=== PATIENT | male | born 1970 | race Caucasian/White ===

== ENCOUNTER → 2019-05-10 11:36 | Outpatient (CLI) | payer BC, OTHER, SELFPAY ==
--- NOTE | ~2019-05-10 | XR_ITS ---
XR lumbar spine min 4V DATE: 05/10/2019 11:39 INDICATION: Low back pain, right sciatica. TECHNIQUE: AP, lateral, bilateral oblique and coned lateral lumbosacral views COMPARISON: None FINDINGS: There is degenerative spurring of the lower thoracic and lumbar spine. There is moderate lo ss of height at the L5-S1 interspace but the remaining lumbar interspaces are relatively well preserv ed. No spondylolysis or spondylolisthesis. The included lower thoracic and lumbar pedicles are intact. No fracture or bone destruction or spondylolisthesis. Sacroiliac joints are unremarkable other than mild degenerative change. IMPRESSION: Degenerative changes of the lower thoracic and lumbar spine Reviewed, dictated and finalized at location B. CENTER OPERATOR
== END ==
PROVIDERS: PCP Family Medicine; Visit Provider Family Medicine
DX: G89.29 Other chronic pain (principal); M54.41 Lumbago with sciatica, right side
CPT/HCPCS: 72110

== ENCOUNTER 2020-03-29 06:54 | Outpatient (NON) | payer OTHER, SELFPAY ==
[2020-03-29 17:42] LABS: SARS-CoV-2 RNA PCR Negative
== END 2020-03-29 06:55 ==
PROVIDERS: PCP Family Medicine; Visit Provider Family Medicine
DX: J20.9 Acute bronchitis, unspecified (principal); Z20.822 Contact with and (suspected) exposure to COVID-19
CPT/HCPCS: C9803; U0003

== ENCOUNTER 2020-08-02 09:43 | Emergency (ER) | payer OTHER, SELFPAY ==
[2020-08-02] VITALS (22 sets, daily range): BP systolic 90–114; BP diastolic 67–89; PULSE 76–159; RESP 12–22; TEMP 36.7; O2SAT 94–99
--- NOTE | ~2020-08-02 | XR_ITS ---
XR chest 2V DATE: 08/02/2020 10:20 INDICATION: Tachycardia TECHNIQUE: AP and lateral views COMPARISON: 04/10/2019 PA and lateral chest FINDINGS: Normal heart size. No hilar or mediastinal enlargement. No pulmonary infiltrate or consolid ation, pleural effusion or pulmonary vascular congestion or pneumothorax is detected. Degenerative spurring of the thoracic and lumbar spine. IMPRESSION: No active cardiopulmonary disease Reviewed, dictated and finalized at location A.
--- NOTE | 2020-08-02 09:49 | ED.CHESTPAIN ---
HPI - Chest Pain General Chief Complaint: Chest Pain Stated Complaint: irregular heart beat Time Seen by Provider: 08/02/20 09:48 History of Present Illness HPI narrative: 49 yo male w/ h/o atrial fibrillation, DM presents to the ED for atrial fibrillation. He reports that he noticed racing heart rate, generalized weakness, and mild chest discomfort last night. He checked his heart monitor and he was in atrial fibrillation. He took 25 mg metoprolol. This morning he was still in atrial fibrillation. He called his extract operator and they told him to come in. He did take another 25 mg of metoprolol this morning. This is only the second time he has been in atrial fibrillation. He is on Eliquis. He sees Dr. Menezes at [facility]. Related Data Home Medications Medication Instructions Recorded Confirmed apixaban 5 mg tablet 5 mg PO BID 02/08/19 05/31/20 ascorbate calcium (vitamin C) 500 500 mg PO DAILY 02/08/19 05/31/20 mg tablet atorvastatin 40 mg tablet 40 mg PO DAILY 02/08/19 05/31/20 cetirizine 10 mg tablet 10 mg PO DAILY 02/08/19 05/31/20 cholecalciferol (vitamin D3) 25 1,000 unit PO DAILY 02/08/19 05/31/20 mcg (1,000 unit) capsule multivitamin,[id number]-[id number]-[id number] 1 tablet PO DAILY 02/08/19 05/31/20 blood sugar diagnostic #10 each 05/10/19 05/31/20 blood-glucose meter #1 each 05/10/19 05/31/20 lancets 33 gauge #100 each 05/10/19 05/31/20 metformin 1,500 mg PO QAM 08/02/20 Allergies Allergy/AdvReac Type Severity Reaction Status Date / Time No Known Allergies Allergy Verified 08/02/20 09:54 Review of Systems Review of Systems: All systems reviewed & are unremarkable except as noted in HPI and below Constitutional: Constitutional: Denies chills and Denies fever(s) ENT: Reports system reviewed and no additional complaints, except as documented Cardiovascular: Cardiovascular: Reports chest pain, Reports rapid heart rate and Denies radiating jaw, neck or arm pain Respiratory: Respiratory: Denies dyspnea Gastrointestinal: Gastrointestinal: Denies abdominal pain and Denies nausea Genitourinary: Genitourinary: Reports no additional male genitourinary complaints Musculoskeletal: Musculoskeletal: Denies back pain Neurologic: Denies syncope PMFSH Past Medical History Medical History Acute bronchitis Afib Anemia Carpal tunnel syndrome Chronic low back pain with right-sided sciatica Diabetes Encounter for prostate cancer screening Exposure to COVID-19 virus Fatigue GERD (gastroesophageal reflux disease) Hyperlipidemia Insomnia Kidney stones Seasonal allergies Sleep apnea Surgical History Surgical History H/O skin graft History of carpal tunnel release Family History Family History Father Cerebrovascular accident Family history of chronic obstructive pulmonary disease Family history of congestive heart failure Mother Family history of lung cancer, Onset Age: 64 Social History Social History Smoking status: Never smoker Alcohol intake: never Gender identity (if verbalized by the patient): Male Exam Const: General: healthy appearing, no acute distress and alert Nutritional Appearance: well nourished Orientation/consciousness: patient oriented x3 HENMT: Head: normal to inspection Neck: Neck: normal visual inspection Chest: Chest palpation & inspection: no tenderness Resp: Effort & Inspection: normal respiratory effort Auscultation: clear to auscultation bilaterally, no rales, no rhonchi and no wheezes Cardio: Jugular venous distension: no JVD Rate: tachycardic Rhythm: abnormal rhythm irregularly irregular Heart sounds: no murmurs GI: Inspection: non-distended GI Palp: Yes Soft to palpation and No Tenderness to palpation present (GI) Skin: General
--- NOTE | 2020-08-02 09:51 | ECG_ITS ---
Measurements Intervals [place] Rate: 161 P: OR: 0 QRS: -15 QRSD: 85 T: 50 QT: 263 QTc: 431 Interpretive Statements ATRIAL FIBRILLATION WITH RAPID VENTRICULAR RESPONSE INCOMPLETE RIGHT BUNDLE BRANCH BLOCK ABNORMAL ECG Electronically Signed On 08-02-2020 10:03:55 CDT by Kolton Nguyen D.O.
[2020-08-02] MEDS: SODIUM CHLORIDE 0.9% IV 1,000 ML 999 ML IV CONT (10:06)
[2020-08-02] MEDS: ASPIRIN 81 MG CHEWABLE TABLET 324 MG PO (10:06)
[2020-08-02 10:07] LABS: Basophils Percent Auto 0.5 % (0.2-1.2); Eosinophils Absolute Auto 0.2 K/mm3 (0-0.3); Hematocrit 51.3 % (42.0-52.0); Immature Granulocyte Absolute 0.02 K/mm3 (0.00-0.031); Immature Granulocyte Percent A 0.3 % (0-0.5); Lymphocytes Absolute Auto 1.48 K/mm3 (0.9-3.2); Lymphocytes Percent Auto 20.1 % (18.3-44.2); Mean Corpuscular HGB Conc 33.1 g/dl (32-36); Mean Corpuscular Hemoglobin 29.8 pg (26-34); Mean Platelet Volume 9.3 fl (7.4-10.4); Monocytes Absolute Auto 0.6 K/mm3 (0.1-0.6); Monocytes Percent Auto 7.9 % (2.6-8.5); Neutrophils Percent Auto 68.2 % (45.5-73.1); Platelet Count Result 291 k/mm3 (150-375); Red Cell Distribution Width 12.7 % (11.5-14.5); White Blood Count 7.4 K/mm3 (4.5-10.0)
[2020-08-02] MEDS: METOPROLOL TARTRATE INJ 5 MG/5 ML VIAL IV PUSH (10:07)
[2020-08-02 10:18] LABS: Anion Gap 5 mmol/L (8-16); Blood Urea Nitrogen 11 mg/dL (9-20); Calcium 9.6 mg/dL (8.4-10.2); Carbon Dioxide 31 mmol/L (22-30); Chloride 104 mmol/L (98-107); Estimated CRCL calculation 88 ml/min; Estimated Glomerular Filt Rate > 60; Glucose 116 mg/dL (75-110); Potassium 4.2 mmol/L (3.4-5.0); Sodium 140 mmol/L (137-145)
[2020-08-02 10:20] LABS: Prothrombin Time 13.6 Seconds (11.1-14.7)
[2020-08-02 10:21] LABS: Partial Thromboplastin Time 37.4 SECONDS (22.3-36.8)
[2020-08-02 10:29] LABS: Troponin I < 0.012 ng/mL (0.000-0.034)
--- NOTE | 2020-08-02 10:36 | PC.NURSE ---
Pt moved to Rm 3 in case of need to cardiovert under moderate sedation.
--- NOTE | 2020-08-02 10:55 | PC.NURSE ---
Consent for moderate sedation for cardioversion signed per pt.
[2020-08-02] MEDS: PROPOFOL IV EMULSION 200 MG/20 ML VIAL 50 MG IV PUSH (11:07)
[2020-08-02] MEDS: PROPOFOL IV EMULSION 200 MG/20 ML VIAL 20 MG IV PUSH ×3 (11:08→11:12)
--- NOTE | 2020-08-02 11:09 | PC.NURSE ---
Pt given propofol x3 doses, attempt cardioversion with 100j. Pt returns to a-fib with RVR rate 150's.
--- NOTE | 2020-08-02 11:12 | PC.NURSE ---
Pt given additional propofol. Cardioverted with 200j. Note conversion to SR rate 80's. Preparing to obtain EKG
--- NOTE | 2020-08-02 11:14 | ECG_ITS ---
Measurements Intervals [place] Rate: 81 P: 42 IN: 165 QRS: -18 QRSD: 88 T: 43 QT: 355 QTc: 413 Interpretive Statements SINUS RHYTHM INCOMPLETE RIGHT BUNDLE BRANCH BLOCK BORDERLINE ECG Electronically Signed On 08-02-2020 12:04:14 CDT by Kolton Nguyen D.O.
[2020-08-02] MEDS: SODIUM CHLORIDE 0.9% IV 1,000 ML 999 ML (11:39)
== END 2020-08-02 12:30 | disposition home or self-care (01) ==
PROVIDERS: Emergency Provider Emergency Medicine; PCP Family Medicine
DX: I48.91 Unspecified atrial fibrillation (principal); D64.9 Anemia, unspecified; E11.9 Type 2 diabetes mellitus without complications; K21.9 Gastro-esophageal reflux disease without esophagitis; E78.5 Hyperlipidemia, unspecified; G47.30 Sleep apnea, unspecified; Z79.84 Long term (current) use of oral hypoglycemic drugs
CPT/HCPCS: 36415; 71046; 80048; 84443; 84484; 85025; 85610; 85730; 92960; 93005; 96374; 99285; A9270; J2704; J7030

== ENCOUNTER 2020-10-23 08:41 | Outpatient (CLI) | payer OTHER, SELFPAY ==
--- NOTE | 2020-11-20 11:03 | WPDHOMESLEEP ---
Sleep Study - Home Unattended Date of Study: 10/23/20 Ordering Provider: Vince Jansen MD Interpreting Provider: Randi Carroll MD Home Sleep Study Type: Apnea Link Air Height: 1.78 m Weight: 90.718 kg Body Mass Index: 28.7 Neck Circumference (inches): 18 [place]: 6 Reason for Sleep Study Hypersomnia *Prior basic sleep study 06/22/2009 with AHI 5, excessive daytime sleepiness, Short sleep latency heavy snoring short REM latency, cannot rule out narcolepsy Sleep History Bonifacio Morrow is 50 years old, has paroxysmal atrial fibrillation, seasonal allergic rhinitis, and frequent fatigue. he had a basic sleep study June 22, 2009 with an AHI of 5 and a short sleep latency consistent with hypersomnolence.He he occasionally awakens at night with heartburn, belching or coughing, he occasionally snores loudly, occasionally has trouble sleeping with a cold. He does not gasp for breath at night or notice his heart pounding irregularly night. He occasionally sweats excessively at night. He rarely falls asleep during the day, never falls asleep involuntarily or while driving. No loss of muscle tone with strong emotion. No daytime difficulties at work due to excessive sleepiness. He does not feel paralyzed on waking or falling asleep. He does not have vivid dreamlike scenes upon awakening or falling asleep. He does not have nightmares. He rarely remembers his dreams. He occasionally has racing thoughts. He does not feel sad or depressed. He rarely has anxiety or notice parts of his body jerking. He does not kick at night. He rarely has crawling and aching feelings in his legs. He occasionally is bothered by pain during the day. He never grind his teeth at night. He has sexual problems. Normal bedtime between 11 and 11:30 p.m. falling asleep within 15-30 minutes waking 2-3 times at night staying awake for 5 minutes before being able to go back to sleep. He wakes the morning at 6:00 a.m.. Weekend schedule is similar going to bed as late as midnight and waking at 7:00 a.m.. He does not take naps. Short naps are not refreshing. He is drowsy in the morning for an hour or longer. Habits: Never smoked tobacco. Caffeine 2-4 cups a day. No alcohol or recreational drugs. [facility] Past Medical History Medical History Acute bronchitis Afib Anemia BMI 28.0-28.9,adult Carpal tunnel syndrome Chronic low back pain with right-sided sciatica Chronic neck pain with history of cervical spinal surgery Chronic pain in right shoulder Diabetes Encounter for prostate cancer screening Exposure to COVID-19 virus Fatigue GERD (gastroesophageal reflux disease) Hyperlipidemia Hypersomnia Insomnia Kidney stones Obstructive sleep apnea Seasonal allergies Surgical History Surgical History H/O skin graft History of carpal tunnel release Family History Family History Father Cerebrovascular accident Family history of chronic obstructive pulmonary disease Family history of congestive heart failure Mother Family history of lung cancer, Onset Age: 64 Social History Social History Smoking status: Never smoker Alcohol intake: never Gender identity (if verbalized by the patient): Male Medications Home Medications Medication Instructions Recorded Confirmed Type apixaban 5 mg tablet 5 mg PO BID 02/08/19 11/07/20 History ascorbate calcium (vitamin C) 500 500 mg PO DAILY 02/08/19 11/07/20 History mg tablet atorvastatin 40 mg tablet 40 mg PO DAILY 02/08/19 11/07/20 History cetirizine 10 mg tablet 10 mg PO DAILY 02/08/19 11/07/20 History cholecalciferol (vitamin D3) 25 1,000 unit PO DAILY 02/08/19 11/07/20 History mcg (1,000 unit) capsule multivitamin,[id number]-[id number] 1 tablet PO DAILY 02/08/19
[2020-11-20 11:23] VITALS: BMI 28.7
== END 2020-10-24 08:13 | disposition home or self-care (01) ==
LOC: ANHCSM 08:42
PROVIDERS: PCP Family Medicine; Visit Provider Family Medicine
DX: G47.10 Hypersomnia, unspecified (principal); G47.33 Obstructive sleep apnea (adult) (pediatric)
CPT/HCPCS: 95806

== ENCOUNTER → 2020-12-19 05:17 | Outpatient (CLI) | payer OTHER, SELFPAY ==
[2020-12-20 01:26] LABS: SARS-CoV-2 RNA PCR Negative
== END ==
PROVIDERS: PCP Family Medicine; Visit Provider Family Medicine
DX: Z20.822 Contact with and (suspected) exposure to COVID-19 (principal); J20.9 Acute bronchitis, unspecified
CPT/HCPCS: C9803; U0003; U0005

== ENCOUNTER 2021-03-28 07:19 | Outpatient (RCR) | payer OTHER, SELFPAY ==
[2021-03-28] MEDS: ACETAMINOPHEN 325 MG TABLET 650 MG PO (07:30)
[2021-03-28] MEDS: diphenhydrAMINE HCl CAP 25 MG CAPSULE PO (07:31)
[2021-03-28] MEDS: FAMOTIDINE 20 MG TABLET PO (07:31)
[2021-03-28 07:36] VITALS: BP 115/78; PULSE 84; RESP 18; TEMP 36.2; O2SAT 98
[2021-03-28 09:12] VITALS: BP 108/76; PULSE 76; O2SAT 100
== END 2021-03-28 17:00 ==
LOC: AMCINF 07:19
PROVIDERS: PCP Family Medicine; Referring Provider Family Medicine; Visit Provider Internal Medicine Hematology & Oncology
DX: U07.1 COVID-19 (principal); E11.9 Type 2 diabetes mellitus without complications
CPT/HCPCS: A9270; M0247

== ENCOUNTER 2021-08-06 16:56 | Outpatient (CLI) | payer OTHER, SELFPAY ==
--- NOTE | ~2021-08-06 | CT_ITS ---
EXAMINATION: CT abdomen pelvis wo con DATE: 08/06/2021 17:19 INDICATION: History of ureteral stone, low back pain, TECHNIQUE: Computed tomography (CT) of the abdomen and pelvis was performed without intravenous contr ast. Automated exposure control and iterative reconstruction technique were employed. The dose-length product was 245.51 mGy-cm. COMPARISON: 03/18/2015. FINDINGS: Lower thorax: Unremarkable Liver: Normal. Biliary/Gallbladder: Gallbladder is normal. No bile duct dilation. Pancreas: No mass or duct dilation. Spleen: Normal. Adrenals:No mass. Kidneys: Nonobstructing 2 x 4 mm stone in the proximal left renal pelvis. Punctate left upper pole ca lcification. No other renal calcifications. No mass or hydronephrosis. GI tract: No small or large bowel dilation. Normal appendix. Mesentery/Peritoneum: No ascites, mass, or free air. Retroperitoneum: No mass. Pelvis: Pelvic organs are within normal limits. Soft Tissues: Soft tissues and body wall unremarkable. Bones: No acute osseous finding. IMPRESSION: Nonobstructive 2 x 4 mm proximal left renal pelvis stone. No other acute abdominal pelvic process det ected. Reviewed, dictated and finalized at location K. IMPRESSION: Nonobstructive 2 x 4 mm proximal left renal pelvis stone. No other acute abdomi nal pelvic process detected.
== END 2021-08-06 16:57 | disposition home or self-care (01) ==
PROVIDERS: PCP Family Medicine; Visit Provider Family Medicine
DX: N20.0 Calculus of kidney (principal)
CPT/HCPCS: 74176

== ENCOUNTER 2021-08-14 16:19 | Outpatient (CLI) | payer OTHER, SELFPAY ==
--- NOTE | ~2021-08-14 | CT_ITS ---
EXAMINATION: CT abdomen pelvis wo con DATE: 08/14/2021 16:39 INDICATION: N20.0 - Calculus of kidney TECHNIQUE: Computed tomography (CT) of the abdomen and pelvis was performed without intravenous contr ast. Automated exposure control and iterative reconstruction technique were employed. The dose-length product was 581.01 mGy-cm. COMPARISON: None FINDINGS: Lower thorax: Unremarkable Liver: Normal. Biliary/Gallbladder: Gallbladder is normal. No bile duct dilation. Pancreas: No mass or duct dilation. Spleen: Normal. Adrenals:No mass. Kidneys: No mass or hydronephrosis. Slight downstream movement of the 2 x 4 mm calcification describe d in the prior study, now located in the left UPJ, with minimal surrounding inflammatory change. [place] nonobstructive left upper pole calcification. GI tract: No small or large bowel dilation. Normal appendix. Mesentery/Peritoneum: No ascites, mass, or free air. Retroperitoneum: No mass. Pelvis: Prostatomegaly, otherwise the pelvic organs are within normal limits. Soft Tissues: Soft tissues and body wall unremarkable. Bones: No acute osseous finding. IMPRESSION: 2 x 4 mm left UPJ stone with mild adjacent inflammation, but no hydronephrosis. Otherwise no acute ab dominopelvic process. Reviewed, dictated and finalized at location K. IMPRESSION: 2 x 4 mm left UPJ stone with mild adjacent inflammation, but no hydronephrosis. Otherwise no acute abdominopelvic process.
== END 2021-08-14 16:20 | disposition home or self-care (01) ==
PROVIDERS: PCP Family Medicine; Visit Provider Family Medicine
DX: N20.1 Calculus of ureter (principal)
CPT/HCPCS: 74176

== ENCOUNTER 2021-09-26 10:59 | Emergency (ER) | payer OTHER, SELFPAY ==
--- NOTE | ~2021-09-26 | CT_ITS ---
EXAMINATION: CT abdomen pelvis w con DATE: 09/26/2021 12:14 INDICATION: Left flank pain after lithotripsy. Hematuria. TECHNIQUE: Computed tomography (CT) of the abdomen and pelvis was performed with 100 CC Omnipaque 300 intravenous contrast. Automated exposure control and iterative reconstruction technique were employe d. Exam dose: 557.89 mGy-cm total exam DLP. COMPARISON: 07/2021 CT abdomen pelvis FINDINGS: The lung bases are clear of infiltrate or consolidation. Normal heart size. No pericardial or pleural effusion. The liver, gallbladder, bile ducts, spleen, pancreas, pancreatic duct, and adrenal glands are unremar kable. Normal right kidney. No right urinary tract calculus or hydroureteronephrosis. Left internal urinary stent is present in expected position, proximal pigtail in the renal pelvis, di stal pigtail in the left lateral aspect of the urinary bladder. There is a pinpoint calculus in the lower pole collecting system of the left kidney prior left renal pelvic calculus of 08/10/2021 CT examination is not detected. No other urinary tract calculus is noted . There is diffuse periureteral stranding which may be secondary to instrumentation or infection. There is a small amount of air in the nondependent aspect of the urinary bladder. No unusual bladder wall thickening or pericystic fat stranding. Prostate enlargement and calcification. Normal caliber of the abdominal aorta. No intraperitoneal or retroperitoneal or pelvic mass lesion or adenopathy or ascites. Small fat-containing left inguinal hernia. Small fat-containing umbilical hernia. Which might which m ight be secondary to infection. Degenerative changes of the thoracic and lumbar spine; no suspicious osteolytic or osteoblastic lesio ns. IMPRESSION: Left internal urinary stent in expected position Pinpoint nonobstructing lower pole left renal calculus; no other apparent urinary tract calculus There is diffuse left periureteral stranding which may be due to instrumentation or infection Prostate enlargement and calcification Reviewed, dictated and finalized at Location A. Reviewed, dictated and finalized at location A. IMPRESSION: Left internal urinary stent in expected position Pinpoint nonobstructing lower pole left renal calculus; no other apparent urina ry tract calculus There is diffuse left periureteral stranding which may be due to instrumentatio n or infection Prostate enlargement and calcification
[2021-09-26 11:01] VITALS: BP 131/77; PULSE 100; RESP 18; TEMP 36.6; O2SAT 99
[2021-09-26 11:26] LABS: Add Urine Microscopic? YES; Appearance Urine Turbid (Clear); Bilirubin Urine 3+ (Negative); Blood Urine 3+ (Negative); Color Urine Red (Yellow); Glucose Urine UA Negative (Negative); Ketones Urine 1+ mg/dL (Negative); Leukocyte Esterase Ur 3+ LEU/UL (Negative); Nitrate Urine Negative (Negative); Protein Urine 3+ mg/dL (Negative)
--- NOTE | 2021-09-26 11:33 | ED.MALEGU ---
HPI - Male Genitourinary General Chief complaint: Urogenital-Male Stated complaint: post op pain, hematuria Time Seen by Provider: 09/26/21 11:20 Source: patient History of Present Illness HPI Narrative: Patient presents with left-sided abdominal pain and back pain. Patient reports he had lithotripsy on the first month with stent placement positioning fairly well his volume blood in his urine is waxing waning reports intermittent clots. Recently however his pain has been increasing and in the suprapubic area and on the left flank. He feels like he has been having increased blood in his urine as well as some subjective fevers at home so he came to the ER for further evaluation. Denies any nausea or vomiting denies any chest pain or shortness of breath. His pain is abdomen is mainly in the suprapubic area and achy constant and radiates up into his left flank. He also reports pain with urination Related Data Home Medications Medication Instructions Recorded Confirmed apixaban 5 mg tablet (Eliquis) 5 mg PO BID 02/08/19 09/10/21 ascorbate calcium (vitamin C) 500 500 mg PO DAILY 02/08/19 09/10/21 mg tablet cetirizine 10 mg tablet (All Day 10 mg PO DAILY 02/08/19 09/10/21 Allergy (cetirizine)) multivitamin,[id number]-clmk-[id number] 1 tablet PO DAILY 02/08/19 09/10/21 (Complete Multivitamin tablet) blood sugar diagnostic (Parcus Medicaluch #10 ea 05/10/19 09/10/21 Ultra Blue Test Strip) blood-glucose meter (P[employer] MedicalTouch #1 ea 05/10/19 09/10/21 Ultra2 Meter kit) lancets 33 gauge (OneTouch Delica #100 ea 05/10/19 09/10/21 Lancets) atorvastatin 80 mg tablet 80 mg PO DAILY 04/10/21 09/10/21 cholecalciferol (vitamin D3) 25 2,000 unit PO DAILY 04/10/21 09/10/21 mcg (1,000 unit) capsule ezetimibe 10 mg tablet (Zetia) 10 mg PO DAILY 04/10/21 09/10/21 metoprolol succinate 25 mg 25 mg PO DAILY 04/27/21 09/10/21 tablet,extended release 24 hr Allergies Allergy/AdvReac Type Severity Reaction Status Date / Time No Known Allergies Allergy Verified 09/26/21 11:03 Review of Systems Review of Systems: CONSTITUTIONAL: Denies fever, chills, or sweats. EYES: Denies visual changes, redness, or discharge. ENT: Denies rhinorrhea, congestion, sore throat, or otalgia. CARDIOVASCULAR: Denies chest pain, palpitations, or edema. RESPIRATORY: Denies cough or dyspnea. GASTROINTESTINAL: Denies nausea, vomiting, or diarrhea. GENITOURINARY: Reports dysuria and hematuria SKIN: Denies rash or itching. MUSCULOSKELETAL: Denies back pain, joint pain, or myalgia. NEUROLOGIC: Denies headache, numbness, dizziness, or weakness. PSYCHIATRIC: Denies anxiety or depression. All systems reviewed & are unremarkable except as noted in HPI and below PMFSH Past Medical History Medical History Acute bronchitis Afib Anemia BMI 28.0-28.9,adult BMI 29.0-29.9,adult Carpal tunnel syndrome Chronic low back pain with left-sided sciatica Chronic low back pain with right-sided sciatica Chronic neck pain with history of cervical spinal surgery Chronic pain in right shoulder COVID-19 (03/23/21) tested positive 03/24/2021 Diabetes Encounter for prostate cancer screening Exposure to COVID-19 virus Fatigue GERD (gastroesophageal reflux disease) Hyperlipidemia Hypersomnia Insomnia Kidney stones CT 08/06/2021 with a 2 x 4 mm nonobstructive stone in the left renal pelvis. 4 mm stone in the left UPJ on CT 08/14/2021. Obstructive sleep apnea Home sleep study with [facility] with AHI 6.5 with 12% obstructive sleep apnea episodes and 88% central apnea episodes with need for CPAP titration 11/20/2020 Overweight (BMI 25.0-29.9) Seasonal allergies UTI (urinary tract infection) Surgical History Surgical History H/O skin graft History of carpal tunnel release Family History Family History Father Cerebrovascular accident
[2021-09-26 11:36] LABS: Mucus Urine Rare /lpf; RBC Urine >75 /hpf (0-2); WBC Urine 31-50 /hpf
[2021-09-26] MEDS: SODIUM CHLORIDE 0.9% IV 1,000 ML 999 ML IV CONT (11:43)
--- NOTE | 2021-09-26 11:44 | PC.NURSE ---
barcode would not scan on acetaminophen bag
[2021-09-26 11:46] LABS: Basophils Percent Auto 0.4 % (0.2-1.2); Eosinophils Absolute Auto 0.2 K/mm3 (0-0.3); Eosinophils Percent Auto 2.8 % (0-4.4); Hematocrit 43.8 % (42.0-52.0); Hemoglobin 14.7 g/dL (14.0-18.0); Immature Granulocyte Absolute 0.02 K/mm3 (0.00-0.031); Immature Granulocyte Percent A 0.3 % (0-0.5); Lymphocytes Absolute Auto 1.22 K/mm3 (0.9-3.2); Lymphocytes Percent Auto 16.2 % (18.3-44.2); Mean Corpuscular HGB Conc 33.6 g/dl (32-36); Mean Corpuscular Hemoglobin 30.3 pg (26-34); Mean Corpuscular Volume 90.3 fl (80-100); Mean Platelet Volume 8.9 fl (7.4-10.4); Monocytes Absolute Auto 0.6 K/mm3 (0.1-0.6); Monocytes Percent Auto 7.4 % (2.6-8.5); Neutrophils Absolute Auto 5.5 K/mm3 (1.3-6.7); Neutrophils Percent Auto 72.9 % (45.5-73.1); Platelet Count Result 240 k/mm3 (150-375); Red Blood Count 4.85 M/mm3 (4.6-6.20); Red Cell Distribution Width 12.4 % (11.5-14.5); White Blood Count 7.6 K/mm3 (4.5-10.0)
[2021-09-26 11:59] LABS: Alanine Aminotransferase 41 U/L (6-50); Albumin Level 4.1 g/dL (3.5-5.1); Alkaline Phosphatase 86 U/L (38-126); Anion Gap 6 mmol/L (8-16); Aspartate Amino Transferase 29 U/L (17-59); Blood Urea Nitrogen 12 mg/dL (9-20); Carbon Dioxide 28 mmol/L (22-30); Chloride 102 mmol/L (98-107); Estimated CRCL calculation 102 ml/min; Estimated Glomerular Filt Rate > 60; Glucose 142 mg/dL (65-110); Potassium 4.1 mmol/L (3.4-5.0); Sodium 136 mmol/L (137-145)
[2021-09-26 12:18] VITALS: BP 128/76; PULSE 74; RESP 16; TEMP 36.4; O2SAT 100
[2021-09-26 14:07] VITALS: BP 132/76; PULSE 70; RESP 16; TEMP 36.4; O2SAT 98
[2021-09-26 14:51] VITALS: BP 128/70; PULSE 72; RESP 16; TEMP 36.6; O2SAT 100
== END 2021-09-26 14:52 | disposition home or self-care (01) ==
PROVIDERS: Emergency Provider Emergency Medicine; PCP Family Medicine
DX: R31.9 Hematuria, unspecified (principal); R10.9 Unspecified abdominal pain; I48.91 Unspecified atrial fibrillation; E11.9 Type 2 diabetes mellitus without complications; E78.5 Hyperlipidemia, unspecified; Z79.01 Long term (current) use of anticoagulants
CPT/HCPCS: 36415; 74177; 80053; 81001; 85025; 87086; 96365; 99284; J0131; J7030; Q9967

== ENCOUNTER 2021-10-02 22:15 | Emergency (ER) | payer OTHER, SELFPAY ==
[2021-10-02 22:21] VITALS: BP 116/75; PULSE 114; RESP 20; TEMP 36.3; O2SAT 100
--- NOTE | 2021-10-02 23:03 | ED.MALEGU ---
HPI - Male Genitourinary General Chief complaint: Urogenital-Male Stated complaint: unable to urinate for 5 hrs Time Seen by Provider: 10/02/21 22:32 Source: patient Mode of arrival: ambulatory Limitations: no limitations History of Present Illness HPI Narrative: This is a 51-year-old male that presents to the emergency department for urinary retention. Reports he had a ureteral stent placed at the beginning of this month. It was pulled out today in clinic by his urologist. Initially he was able to urinate. He has not been able to since about 5 PM though. He did report passing a blood clot tonight. He is on Eliquis currently for history of atrial fibrillation. Denies fever. Related Data Home Medications Medication Instructions Recorded Confirmed apixaban 5 mg tablet (Eliquis) 5 mg PO BID 02/08/19 09/10/21 ascorbate calcium (vitamin C) 500 500 mg PO DAILY 02/08/19 09/10/21 mg tablet cetirizine 10 mg tablet (All Day 10 mg PO DAILY 02/08/19 09/10/21 Allergy (cetirizine)) multivitamin,[id number]-[id number] 1 tablet PO DAILY 02/08/19 09/10/21 (Complete Multivitamin tablet) blood sugar diagnostic (OneTouch #10 ea 05/10/19 09/10/21 Ultra Blue Test Strip) blood-glucose meter (OneTouch #1 ea 05/10/19 09/10/21 Ultra2 Meter kit) lancets 33 gauge (OneTouch Delica #100 ea 05/10/19 09/10/21 Lancets) atorvastatin 80 mg tablet 80 mg PO DAILY 04/10/21 09/10/21 cholecalciferol (vitamin D3) 25 2,000 unit PO DAILY 04/10/21 09/10/21 mcg (1,000 unit) capsule ezetimibe 10 mg tablet (Zetia) 10 mg PO DAILY 04/10/21 09/10/21 metoprolol succinate 25 mg 25 mg PO DAILY 04/27/21 09/10/21 tablet,extended release 24 hr Allergies Allergy/AdvReac Type Severity Reaction Status Date / Time No Known Allergies Allergy Verified 10/02/21 22:25 Review of Systems Review of Systems: CONSTITUTIONAL: Denies fever GENITOURINARY: Reports hematuria. All systems reviewed & are unremarkable except as noted in HPI and below PMFSH Past Medical History Medical History Acute bronchitis Afib Anemia BMI 28.0-28.9,adult BMI 29.0-29.9,adult Carpal tunnel syndrome Chronic low back pain with left-sided sciatica Chronic low back pain with right-sided sciatica Chronic neck pain with history of cervical spinal surgery Chronic pain in right shoulder COVID-19 (03/23/21) tested positive 03/24/2021 Diabetes Encounter for prostate cancer screening Exposure to COVID-19 virus Fatigue GERD (gastroesophageal reflux disease) Hyperlipidemia Hypersomnia Insomnia Kidney stones CT 08/06/2021 with a 2 x 4 mm nonobstructive stone in the left renal pelvis. 4 mm stone in the left UPJ on CT 08/14/2021. Obstructive sleep apnea Home sleep study with [facility] with AHI 6.5 with 12% obstructive sleep apnea episodes and 88% central apnea episodes with need for CPAP titration 11/20/2020 Overweight (BMI 25.0-29.9) Seasonal allergies UTI (urinary tract infection) Surgical History Surgical History H/O skin graft History of carpal tunnel release Family History Family History Father Cerebrovascular accident Family history of chronic obstructive pulmonary disease Family history of congestive heart failure Mother Family history of lung cancer, Onset Age: 64 Social History Social History Smoking status: Never smoker Alcohol intake: never Gender identity (if verbalized by the patient): Male Exam Narrative: GENERAL: Well-appearing, well-nourished, and in no acute distress. HEAD: Normocephalic, atraumatic. EYES: EOMI. CHEST: Clear to auscultation. No respiratory distress. No wheezes rales or rhonchi HEART: Regular rate and rhythm. No murmur heard. Normal peripheral pulses. ABDOMEN: Soft, nontender, nondistended, normal act
[2021-10-02 23:23] LABS: Add Urine Microscopic? YES; Appearance Urine Cloudy (Clear); Bilirubin Urine 3+ (Negative); Blood Urine 3+ (Negative); Color Urine Red (Yellow); Glucose Urine UA Trace mg/dL (Negative); Ketones Urine 2+ mg/dL (Negative); Leukocyte Esterase Ur 3+ LEU/UL (Negative); Nitrate Urine Negative (Negative); Protein Urine 3+ mg/dL (Negative); Specific Grav Ur <= 1.005 (1.001-1.035); pH Urine 8.5 (5.0-9.0)
[2021-10-02 23:30] LABS: Bacteria Urine 2+ /hpf; Mucus Urine Rare /lpf; RBC Urine >75 /hpf (0-2); WBC Urine 31-50 /hpf
[2021-10-03] MEDS: HYDROcodone/acetaminophen (*CRX) 5-325 MG TABLET 1 TAB PO (00:25)
--- NOTE | 2021-10-03 00:57 | ECG_ITS ---
Measurements Intervals [place] Rate: 84 P: 21 DE: 141 QRS: -25 QRSD: 92 T: 31 QT: 370 QTc: 439 Interpretive Statements SINUS RHYTHM INCOMPLETE RIGHT BUNDLE BRANCH BLOCK BORDERLINE ECG Electronically Signed On 10-03-2021 6:31:33 CDT by Kolton Nguyen D.O.
[2021-10-03] MEDS: ONDANSETRON INJ 4 MG/2 ML VIAL IV PUSH (01:16)
[2021-10-03] MEDS: SODIUM CHLORIDE 0.9% IV 500 ML 999 ML IV CONT (01:16)
[2021-10-03] MEDS: MECLIZINE HCL 25 MG TABLET PO (01:18)
[2021-10-03] MEDS: MORPHINE SULFATE (*CRX) 4 MG/ML INJ IV PUSH (01:18)
[2021-10-03 01:29] LABS: Basophils Percent Auto 0.5 % (0.2-1.2); Eosinophils Absolute Auto 0.3 K/mm3 (0-0.3); Eosinophils Percent Auto 3.3 % (0-4.4); Hematocrit 37.8 % (42.0-52.0); Hemoglobin 12.8 g/dL (14.0-18.0); Immature Granulocyte Absolute 0.02 K/mm3 (0.00-0.031); Immature Granulocyte Percent A 0.3 % (0-0.5); Lymphocytes Absolute Auto 1.41 K/mm3 (0.9-3.2); Lymphocytes Percent Auto 17.9 % (18.3-44.2); Mean Corpuscular HGB Conc 33.9 g/dl (32-36); Mean Corpuscular Volume 88.7 fl (80-100); Mean Platelet Volume 8.9 fl (7.4-10.4); Monocytes Absolute Auto 0.7 K/mm3 (0.1-0.6); Monocytes Percent Auto 8.8 % (2.6-8.5); Neutrophils Absolute Auto 5.4 K/mm3 (1.3-6.7); Neutrophils Percent Auto 69.2 % (45.5-73.1); Platelet Count Result 260 k/mm3 (150-375); Red Blood Count 4.26 M/mm3 (4.6-6.20); Red Cell Distribution Width 12.5 % (11.5-14.5); White Blood Count 7.9 K/mm3 (4.5-10.0)
[2021-10-03 01:39] LABS: Anion Gap 7 mmol/L (8-16); Blood Urea Nitrogen 14 mg/dL (9-20); Calcium 8.5 mg/dL (8.4-10.2); Carbon Dioxide 23 mmol/L (22-30); Chloride 103 mmol/L (98-107); Estimated CRCL calculation 86 ml/min; Estimated Glomerular Filt Rate > 60; Glucose 107 mg/dL (65-110); Potassium 3.5 mmol/L (3.4-5.0); Sodium 133 mmol/L (137-145)
[2021-10-03 01:42] VITALS: BP 125/75; PULSE 82; RESP 18; O2SAT 98
--- NOTE | 2021-10-03 01:46 | PC.NURSE ---
urojet administered prior to [address] way wayne insertion
[2021-10-03] MEDS: PHENAZOPYRIDINE HCL 100 MG TABLET 200 MG PO (03:41)
[2021-10-03 04:07] VITALS: BP 127/79; PULSE 80; RESP 18; O2SAT 99
== END 2021-10-03 04:00 | disposition home or self-care (01) ==
PROVIDERS: Physician Assistant; Emergency Provider Emergency Medicine
DX: R33.9 Retention of urine, unspecified (principal); R31.0 Gross hematuria; I48.91 Unspecified atrial fibrillation; D64.9 Anemia, unspecified; E11.9 Type 2 diabetes mellitus without complications; K21.9 Gastro-esophageal reflux disease without esophagitis; E78.5 Hyperlipidemia, unspecified; G47.30 Sleep apnea, unspecified; Z86.16 Personal history of COVID-19; G89.29 Other chronic pain
CPT/HCPCS: 36415; 80048; 81001; 85025; 87086; 93005; 96361; 96365; 96375; 99284; A9270; J0131; J2270; J2405; J7040; L0140

== ENCOUNTER 2021-10-30 17:39 | Emergency (ER) | payer OTHER, SELFPAY ==
--- NOTE | ~2021-10-30 | CT_ITS ---
EXAMINATION: CT abdomen pelvis wo con DATE: 10/30/2021 19:47 INDICATION: left flank pain, hx kidney stones TECHNIQUE: Computed tomography (CT) of the abdomen and pelvis was performed without intravenous contr ast. Automated exposure control and iterative reconstruction technique were employed. The dose-length product was 272.54 mGy-cm. COMPARISON: 09/26/2021. FINDINGS: Lower thorax: Unremarkable Liver: Normal. Biliary/Gallbladder: Partially collapsed. No bile duct dilation. Pancreas: No mass or duct dilation. Spleen: Normal. Adrenals:No mass. Kidneys: No mass, stone, or hydronephrosis. GI tract: No small or large bowel dilation. Normal appendix. Mesentery/Peritoneum: No ascites, mass, or free air. Retroperitoneum: No mass. Pelvis: Pelvic organs are within normal limits. Soft Tissues: Soft tissues and body wall unremarkable. Bones: No acute osseous finding. IMPRESSION: No acute abdominopelvic process detected Reviewed, dictated and finalized at location K.
[2021-10-30 17:46] VITALS: BP 131/93; PULSE 97; RESP 18; TEMP 36.3; O2SAT 97
--- NOTE | 2021-10-30 17:57 | ED.MALEGU ---
HPI - Male Genitourinary General Chief complaint: Urogenital-Male Stated complaint: urinary retention - bladder is not emptying Time Seen by Provider: 10/30/21 17:45 Source: patient Mode of arrival: ambulatory Limitations: no limitations History of Present Illness HPI Narrative: This is a 51 year old male that presents to the ER for irritative voiding symptoms present over the last couple of weeks. Reports it takes him a while to get his stream started and it is uncomfortable. Reports dribbling at the end of voiding. He also is experiencing urinary frequency. He is currently taking Flomax and has been following with Urology after a recent kidney stone. He was prompted to come to the ED today to r/o urinary retention. Denies fever or vomiting. Related Data Home Medications Medication Instructions Recorded Confirmed apixaban 5 mg tablet (Eliquis) 5 mg PO BID 02/08/19 09/10/21 ascorbate calcium (vitamin C) 500 500 mg PO DAILY 02/08/19 09/10/21 mg tablet cetirizine 10 mg tablet (All Day 10 mg PO DAILY 02/08/19 09/10/21 Allergy (cetirizine)) multivitamin,[id number] 1 tablet PO DAILY 02/08/19 09/10/21 (Complete Multivitamin tablet) blood sugar diagnostic (OneTouch #10 ea 05/10/19 09/10/21 Ultra Blue Test Strip) blood-glucose meter (OneTouch #1 ea 05/10/19 09/10/21 Ultra2 Meter kit) lancets 33 gauge (OneTouch Delica #100 ea 05/10/19 09/10/21 Lancets) atorvastatin 80 mg tablet 80 mg PO DAILY 04/10/21 09/10/21 cholecalciferol (vitamin D3) 25 2,000 unit PO DAILY 04/10/21 09/10/21 mcg (1,000 unit) capsule ezetimibe 10 mg tablet (Zetia) 10 mg PO DAILY 04/10/21 09/10/21 metoprolol succinate 25 mg 25 mg PO DAILY 04/27/21 09/10/21 tablet,extended release 24 hr Allergies Allergy/AdvReac Type Severity Reaction Status Date / Time No Known Allergies Allergy Verified 10/30/21 17:56 Review of Systems Review of Systems: CONSTITUTIONAL: Denies fever GASTROINTESTINAL: Denies abdominal pain, nausea, vomiting GENITOURINARY: Reports dysuria. Denies hematuria. All systems reviewed & are unremarkable except as noted in HPI and below PMFSH Past Medical History Medical History Acute bronchitis Afib Anemia BMI 28.0-28.9,adult BMI 29.0-29.9,adult Carpal tunnel syndrome Chronic low back pain with left-sided sciatica Chronic low back pain with right-sided sciatica Chronic neck pain with history of cervical spinal surgery Chronic pain in right shoulder COVID-19 (03/23/21) tested positive 03/24/2021 Diabetes Encounter for prostate cancer screening Exposure to COVID-19 virus Fatigue GERD (gastroesophageal reflux disease) Hyperlipidemia Hypersomnia Insomnia Kidney stones CT 08/06/2021 with a 2 x 4 mm nonobstructive stone in the left renal pelvis. 4 mm stone in the left UPJ on CT 08/14/2021. Obstructive sleep apnea Home sleep study with DENTON with AHI 6.5 with 12% obstructive sleep apnea episodes and 88% central apnea episodes with need for CPAP titration 11/20/2020 Overweight (BMI 25.0-29.9) Seasonal allergies UTI (urinary tract infection) Surgical History Surgical History H/O skin graft History of carpal tunnel release Family History Family History Father Cerebrovascular accident Family history of chronic obstructive pulmonary disease Family history of congestive heart failure Mother Family history of lung cancer, Onset Age: 64 Social History Social History Smoking status: Never smoker Alcohol intake: never Gender identity (if verbalized by the patient): Male Exam Narrative: GENERAL: Well-appearing, well-nourished, and in no acute distress. HEAD: Normocephalic, atraumatic. EYES: EOMI. CHEST: Clear to auscultation. No respiratory distress. No wheezes rales
[2021-10-30 18:02] LABS: Appearance Urine Clear (Clear); Bilirubin Urine Negative (Negative); Blood Urine Negative (Negative); Color Urine Yellow (Yellow); Glucose Urine UA Negative (Negative); Ketones Urine Negative (Negative); Leukocyte Esterase Ur Negative LEU/UL (Negative); Nitrate Urine Negative (Negative); Protein Urine Negative (Negative); Urobilinogen Urine 0.2 mg/dL (<2.0)
[2021-10-30 18:06] LABS: Mucus Urine Rare /lpf; RBC Urine 0-2 /hpf (0-2); Squamous Epithelial Cell Urine Rare /hpf (Few); WBC Urine 0-3 /hpf
[2021-10-30 18:07] LABS: Add Urine Microscopic? YES
[2021-10-30 19:22] VITALS: BP 117/79; PULSE 78; RESP 18; O2SAT 97
[2021-10-30 20:21] VITALS: RESP 18; O2SAT 98
== END 2021-10-30 20:22 | disposition home or self-care (01) ==
PROVIDERS: Physician Assistant; Emergency Provider Emergency Medicine; PCP Family Medicine
DX: R33.9 Retention of urine, unspecified (principal); R35.0 Frequency of micturition; R10.9 Unspecified abdominal pain; I48.91 Unspecified atrial fibrillation; E11.9 Type 2 diabetes mellitus without complications; E78.5 Hyperlipidemia, unspecified; K21.9 Gastro-esophageal reflux disease without esophagitis; G47.33 Obstructive sleep apnea (adult) (pediatric); E66.3 Overweight; Z68.28 Body mass index [BMI] 28.0-28.9, adult; Z86.16 Personal history of COVID-19; Z87.440 Personal history of urinary (tract) infections; Z87.442 Personal history of urinary calculi; Z79.01 Long term (current) use of anticoagulants; Z79.84 Long term (current) use of oral hypoglycemic drugs
CPT/HCPCS: 74176; 81001; 99284

== ENCOUNTER 2021-11-07 07:19 | Outpatient (CLI) | payer OTHER, SELFPAY ==
--- NOTE | ~2021-11-07 | XR_ITS ---
EXAMINATION: XR abdomen/kub 1V INDICATION: Calculus of ureter TECHNIQUE: Supine views of the abdomen were obtained on 2 radiographs. COMPARISON: None FINDINGS: No urolithiasis is identified. There are phleboliths of the left pelvis. The bowel gas shira cherelle is normal. There is mild osteoarthritis of the hips. A moderate volume of colonic stool is presen t. IMPRESSION: 1. No urolithiasis identified. Reviewed, dictated and finalized at location A.
--- NOTE | ~2021-11-07 | US_ITS ---
EXAMINATION: US renal BI DATE: 11/07/2021 08:00 INDICATION: Calculus of ureter TECHNIQUE: Multiple grayscale and Doppler ultrasound images of the kidneys were obtained. COMPARISON: None. FINDINGS: The right kidney measures 12.2 x 5.3 x 5 cm. The left kidney measures 11.8 x 5.2 x 5.4 cm. The kidneys demonstrate normal parenchymal echogenicity. There is no hydronephrosis. The bladder is n ormal. IMPRESSION: 1. Normal kidneys without hydronephrosis. Reviewed, dictated and finalized at location A.
== END 2021-11-07 07:20 | disposition home or self-care (01) ==
LOC: ANHIMG 07:25
PROVIDERS: PCP Family Medicine; Visit Provider Urology
DX: N20.1 Calculus of ureter (principal); M16.0 Bilateral primary osteoarthritis of hip
CPT/HCPCS: 74018; 76775

== ENCOUNTER 2022-06-09 20:17 | Emergency (ER) | payer OTHER, SELFPAY ==
--- NOTE | 2022-06-09 20:29 | ECG_ITS ---
Measurements Intervals [place] Rate: 86 P: 51 DE: 155 QRS: -14 QRSD: 82 T: 44 QT: 340 QTc: 409 Interpretive Statements SINUS RHYTHM WITH SINUS ARRHYTHMIA INCOMPLETE RIGHT BUNDLE BRANCH BLOCK BORDERLINE ECG COMPARED TO ECG 10/03/2021 01:10:34 SINUS ARRHYTHMIA NOW PRESENT Electronically Signed On 06-09-2022 21:34:45 CDT by Kolton Nguyen D.O.
[2022-06-09 20:31] VITALS: BP 131/81; PULSE 91; RESP 16; TEMP 37.2; O2SAT 97
[2022-06-09 20:45] LABS: Basophils Percent Auto 0.5 % (0.2-1.2); Eosinophils Absolute Auto 0.3 K/mm3 (0-0.3); Eosinophils Percent Auto 4.7 % (0-4.4); Hematocrit 42.5 % (42.0-52.0); Hemoglobin 14.1 g/dL (14.0-18.0); Immature Granulocyte Absolute 0.01 K/mm3 (0.00-0.031); Immature Granulocyte Percent A 0.2 % (0-0.5); Lymphocytes Absolute Auto 1.97 K/mm3 (0.9-3.2); Lymphocytes Percent Auto 29.6 % (18.3-44.2); Mean Corpuscular HGB Conc 33.2 g/dl (32-36); Mean Corpuscular Hemoglobin 29.5 pg (26-34); Mean Corpuscular Volume 88.9 fl (80-100); Mean Platelet Volume 8.7 fl (7.4-10.4); Monocytes Absolute Auto 0.5 K/mm3 (0.1-0.6); Monocytes Percent Auto 7.8 % (2.6-8.5); Neutrophils Absolute Auto 3.8 K/mm3 (1.3-6.7); Neutrophils Percent Auto 57.2 % (45.5-73.1); Platelet Count Result 254 k/mm3 (150-375); Red Blood Count 4.78 M/mm3 (4.6-6.20); Red Cell Distribution Width 12.8 % (11.5-14.5); White Blood Count 6.7 K/mm3 (4.5-10.0)
[2022-06-09 20:53] LABS: Alanine Aminotransferase 43 U/L (6-50); Albumin Level 4.2 g/dL (3.5-5.1); Alkaline Phosphatase 85 U/L (38-126); Anion Gap 4 mmol/L (8-16); Aspartate Amino Transferase 34 U/L (17-59); Blood Urea Nitrogen 11 mg/dL (9-20); Calcium 8.9 mg/dL (8.4-10.2); Carbon Dioxide 29 mmol/L (22-30); Chloride 105 mmol/L (98-107); Estimated CRCL calculation 78 ml/min; Estimated Glomerular Filt Rate > 60; Glucose 116 mg/dL (65-110); Lipase 85 U/L (23-300); Potassium 3.7 mmol/L (3.4-5.0); Sodium 138 mmol/L (137-145)
[2022-06-09 20:56] LABS: Prothrombin Time 13.1 Seconds (11.1-14.7)
[2022-06-09 20:57] LABS: Partial Thromboplastin Time 37.8 SECONDS (22.3-36.8)
[2022-06-09 21:04] LABS: Troponin I < 0.012 ng/mL (0.000-0.034)
--- NOTE | 2022-06-09 23:25 | PC.NURSE ---
Pt called for vitals, no answer
--- NOTE | 2022-06-10 00:39 | PC.NURSE ---
Pt called for vitals, no answer
== END 2022-06-10 00:54 | disposition left against medical advice (07) ==
LOC: ANHED 06-10 00:51
PROVIDERS: Emergency Provider Emergency Medicine; PCP Family Medicine
DX: R07.9 Chest pain, unspecified (principal)
CPT/HCPCS: 36415; 80053; 83690; 84484; 85025; 85610; 85730; 93005; 99199

== ENCOUNTER 2023-01-09 09:00 | Outpatient (CLI) | payer OTHER, SELFPAY ==
--- NOTE | 2023-01-28 20:35 | WPDSLEEPSTUD ---
Sleep Study Date of Study: 01/09/23 Ordering Provider: Vince Jansen MD Interpreting Physician: Fatuma Arthur DO Sleep Study Type: Polysomnogram Height: 1.78 m Weight: 88.451 kg Body Mass Index: 27.9 Neck Circumference (inches): 17.5 [place]: 6 Reason for Sleep Study Previously diagnosed DENTON and on CPAP. Not currently on therapy. Sleep History The patient is a 52-year-old male with diabetes, who renal allergies, hyperlipidemia, GERD, history of atrial fibrillation and previously diagnosed sleep apnea that had a sleep study ordered by his primary care physician to restart PAP therapy. The patient denies awakening from sleep short of breath. He occasionally awakens at night with heartburn, belching or cough. He occasionally snores and is occasionally loud enough that others complain. He occasionally has trouble sleeping when he has a cold. He denies waking up gasping for air throughout the night. He rarely has breathing problems at night observed by himself or others. He occasionally sweats excessively at night. He occasionally has heart palpitations or irregular heartbeats during the night. He rarely falls asleep during the day but never while driving. He denies sleep paralysis, cataplexy and hypnagogic / hypnopompic hallucinations. He denies having trouble at school or work due to sleepiness. He denies feeling afraid of going to sleep. He denies having nightmares. He rarely remembers his dreams. He rarely has thoughts racing through his mind. He denies feeling sad or depressed. He occasionally has anxiety. He rarely has muscular tension. He denies noticing parts of his body jerk. He denies kicking during the night. He denies having crawling and aching feelings in his legs and denies having leg pain during the night. He denies grinding his teeth during sleep and denies awakening with morning jaw pain. He is rarely bothered by pain during the day and never awakened by pain during the night. He rarely wakes up feeling stiff in the morning. He denies waking up with sore or achy muscles. He occasionally wakes up with pain in the neck, spine or other joints. He goes to bed between 10:30-11 p.m. on both weekdays and weekends. It takes him 10 minutes to fall asleep. He wakes up twice throughout the night for unknown reasons but is able to fall back asleep within a few minutes. He wakes up between 5:30-6 a.m. on weekdays and at 7:00 a.m. on the weekends. He typically gets 6.5 hours of sleep per night. He will stay in bed for 15 minutes after waking up in the morning. He currently lives with his . He denies consuming any caffeinated beverages within 2 hours of bedtime. He will engage in physical exercise before bedtime. He will occasionally read before falling asleep. He denies taking naps in afternoon or the evening. He consumes 20 oz of caffeinated beverage per day. He denies tobacco, alcohol and recreational drug use. [facility] Past Medical History Medical History Acute bronchitis Acute non-recurrent maxillary sinusitis Afib Anemia Atypical chest pain MRI of the heart 10/29/2022 unremarkable. BMI 28.0-28.9,adult BMI 29.0-29.9,adult Carpal tunnel syndrome Central sleep apnea (~11/20/20) home sleep study on 11/20/2020 with DENTON with AHI of 6.5 with 88% central sleep apnea events. Chronic low back pain with left-sided sciatica Chronic low back pain with right-sided sciatica Chronic neck pain with history of cervical spinal surgery Chronic pain in right shoulder COVID-19 (03/23/21) tested positive 03/24/2021 Diabetes Elevated liver enzymes (04/09/22) AST normal at 36 with ALT elevated at 51 on 04/09/2022. GGT 17, AST 26, ALT 37 on 10/05/2022. Encounter for prostate cancer screening PSA 0.6 on 04/09/2022. Exposure to COVID-19 virus Fatigue GERD (gastroesophageal reflux disease) Hyperlipidemia Hypersomnia Insomnia Kidney stones CT
[2023-01-28 20:37] VITALS: BMI 27.9
== END 2023-01-10 06:32 | disposition home or self-care (01) ==
PROVIDERS: PCP Family Medicine; Visit Provider Family Medicine
DX: G47.33 Obstructive sleep apnea (adult) (pediatric) (principal)
CPT/HCPCS: 95810

== ENCOUNTER 2023-08-19 08:10 | Outpatient (CLI) | payer BC, OTHER, SELFPAY ==
--- NOTE | ~2023-08-19 | XR_ITS ---
EXAMINATION: XR lumbar spine min 4V DATE: 08/19/2023 08:33 INDICATION: Back pain. Fall. TECHNIQUE: 5 views of lumbar spine were obtained. COMPARISON: Lumbar spine radiograph 05/10/2019 FINDINGS: There is 4 degrees levocurvature of thoracolumbar spine. There is mild chronic anterior wed ging of T11 and T12 vertebral bodies. There is mildly decreased disc height at L5-S1. There are endpl ate osteophytes at all levels. There is multilevel facet joint osteoarthritis, severe on the right at L4-L5 and L5-S1.. IMPRESSION: 1. Mild lumbar spondylosis. Reviewed, dictated and finalized at location A. IMPRESSION: 1. Mild lumbar spondylosis.
== END 2023-08-19 08:11 | disposition home or self-care (01) ==
PROVIDERS: PCP Family Medicine; Visit Provider Family Medicine
DX: M43.06 Spondylolysis, lumbar region (principal); M54.42 Lumbago with sciatica, left side; G89.29 Other chronic pain; W19.XXXD Unspecified fall, subsequent encounter
CPT/HCPCS: 72110

== ENCOUNTER 2023-09-22 13:53 | Outpatient (CLI) | payer BC, OTHER, SELFPAY ==
--- NOTE | ~2023-09-22 | XR_ITS ---
EXAMINATION: XR chest 2V Exam Date/Time: 09/22/2023 14:06 CDT HISTORY: J20.9 - Acute bronchitis, unspecified Comparison: 08/02/2020. RESULT: Lines, tubes, and devices: Pacer/AICD, leads in good position. Cervical fusion hardware. Lungs and pleura: Clear. Cardiomediastinal silhouette: Stable. Other: No acute osseous or upper abdominal finding. IMPRESSION: No acute cardiopulmonary process. Reviewed, dictated and finalized at location K.
== END 2023-09-22 13:54 | disposition home or self-care (01) ==
PROVIDERS: PCP Family Medicine; Visit Provider Family Medicine
DX: J20.9 Acute bronchitis, unspecified (principal)
CPT/HCPCS: 71046

== ENCOUNTER 2024-01-16 07:53 | Outpatient (CLI) | payer BC, OTHER, SELFPAY ==
--- NOTE | 2024-02-11 08:37 | WPDSLEEPSTUD ---
Sleep Study Date of Study: 01/16/24 Ordering Provider: Fatuma Arthur DO Interpreting Physician: Fatuma Arthur DO Sleep Study Type: CPAP Titration Height: 1.78 m Weight: 87.09 kg Body Mass Index: 27.5 Neck Circumference (inches): 16 [place]: 13 Reason for Sleep Study The patient had a polysomnogram on 06/22/2009 that showed an overall AHI of 4.9 with desaturation down to 89%. He had an [facility] home sleep study on 10/23/2020 that showed an overall AHI of 6.5 with?primarily central apneas, 88% of the apneas were central as well as hypopneas desaturation to 88% and mild snoring. The patient had a polysomnogram on 01/09/2023 that showed an overall AHI of 6.0 with desaturation down to 85%. Despite the central apnea index being in normal range, almost all of the respiratory events were central in nature. All of the apneas were centrals. Sleep History The patient is a 53-year-old male with diabetes, who renal allergies, hyperlipidemia, GERD, history of atrial fibrillation and previously diagnosed sleep apnea that had a sleep study ordered by his primary care physician to restart PAP therapy. The patient denies awakening from sleep short of breath. He occasionally awakens at night with heartburn, belching or cough. He occasionally snores and is occasionally loud enough that others complain. He occasionally has trouble sleeping when he has a cold. He denies waking up gasping for air throughout the night. He rarely has breathing problems at night observed by himself or others. He occasionally sweats excessively at night. He occasionally has heart palpitations or irregular heartbeats during the night. He rarely falls asleep during the day but never while driving. He denies sleep paralysis, cataplexy and hypnagogic / hypnopompic hallucinations. He denies having trouble at school or work due to sleepiness. He denies feeling afraid of going to sleep. He denies having nightmares. He rarely remembers his dreams. He rarely has thoughts racing through his mind. He denies feeling sad or depressed. He occasionally has anxiety. He rarely has muscular tension. He denies noticing parts of his body jerk. He denies kicking during the night. He denies having crawling and aching feelings in his legs and denies having leg pain during the night. He denies grinding his teeth during sleep and denies awakening with morning jaw pain. He is rarely bothered by pain during the day and never awakened by pain during the night. He rarely wakes up feeling stiff in the morning. He denies waking up with sore or achy muscles. He occasionally wakes up with pain in the neck, spine or other joints. He goes to bed between 10:30-11 p.m. on both weekdays and weekends. It takes him 10 minutes to fall asleep. He wakes up twice throughout the night for unknown reasons but is able to fall back asleep within a few minutes. He wakes up between 5:30-6 a.m. on weekdays and at 7:00 a.m. on the weekends. He typically gets 6.5 hours of sleep per night. He will stay in bed for 15 minutes after waking up in the morning. He currently lives with his . He denies consuming any caffeinated beverages within 2 hours of bedtime. He will engage in physical exercise before bedtime. He will occasionally read before falling asleep. He denies taking naps in afternoon or the evening. He consumes 20 oz of caffeinated beverage per day. He denies tobacco, alcohol and recreational drug use. [facility] Past Medical History Medical History Acute bronchitis Acute non-recurrent maxillary sinusitis Afib Anemia Atypical chest pain MRI of the heart 10/29/2022 unremarkable. BMI 28.0-28.9,adult BMI 29.0-29.9,adult Carpal tunnel syndrome Central sleep apnea (~11/20/20) home sleep study on 11/20/2020 with DENTON with AHI of 6.5 with 88% central sleep apnea events. Home sleep study 01/09/2023 with central sleep apnea with AHI of 6.0 with oxygen desaturation to 85%. Chronic low back pain with left-sided sciatica Chronic low back pain with right-sided sciatica Chronic neck pain with history of cervical spinal surgery Chronic pain in right shoulder COVID-19 (03/23/21) tested positive 03/24/2021 Diabetes Elevated liver enzymes (04/09/22) AST normal at 36 with ALT elevated at 51 on 04/09/2022. GGT 17, AST 26, ALT 37 on 10/05/2022. Encounter for prostate cancer screening PSA 0.6 on 04/09/2022. PSA 0.5 on 05/20/2023. Exposure to COVID-19 virus Fatigue Gastro-esophageal reflux disease without esophagitis Hyperlipidemia Hypersomnia Insomnia Kidney stones CT 08/06/2021 with a 2 x 4 mm nonobstructive stone in the left renal pelvis. 4 mm stone in the left UPJ on CT 08/14/2021. Male erectile dysfunction, unspecified Total testosterone 680, free testosterone 8.4 on 10/18/2023. Monoallelic mutation of TTN gene Family history genetic cardiomyopathy with patient positive for TTN gene abnormality. Brother at age 54. Sister had sudden cardiac it was resuscitated. Obstructive sleep apnea Home sleep study with DENTON with AHI 6.5 with 12% obstructive sleep apnea episodes and 88% central apnea episodes with need for CPAP titration 11/20/2020 Overweight (BMI 25.0-29.9) Pharyngitis Seasonal allergies UTI (urinary tract infection) Surgical History Surgical History H/O skin graft History of carpal tunnel release Status post placement of cardiac pacemaker Family History Family History Father Cerebrovascular accident Family history of chronic obstructive pulmonary disease Family history of congestive heart failure Mother Family history of lung cancer, Onset Age: 64 Social History Social History Smoking status: Never smoker Alcohol intake: never Substance use: never Substance use type: does not use Do You Feel Safe in your Home?: Yes Lack of Transportation: No Lack of Food: Never True Current Housing: I Have Housing Concerned About Future Housing: No Difficulty Paying Gas/Electric Bills: No Difficulty Paying for Meds: No Currently Unemployed: No Education: Decline to Answer Difficulty w/ Childcare or Family Care: No Gender identity (if verbalized by the patient): Male Medications Home Medications Medication Instructions Recorded Confirmed Type apixaban 5 mg tablet (Eliquis) 5 mg PO BID 11/18/19 08/01/24 History ascorbate calcium (vitamin C) 500 500 mg PO DAILY 02/08/19 10/23/23 History mg tablet cetirizine 10 mg tablet (All Day 10 mg PO DAILY 02/08/19 10/23/23 History Allergy (cetirizine)) multivitamin,[id number] 1 tablet PO DAILY 02/08/19 10/23/23 History (Complete Multivitamin tablet) blood-glucose meter (CloudsnapTouch #1 ea 05/10/19 10/23/23 History Ultra2 Meter kit) lancets 33 gauge (OneTouch Delica #100 ea 05/10/19 10/23/23 History Lancets) atorvastatin 80 mg tablet 80 mg PO DAILY 04/10/21 10/23/23 History ezetimibe 10 mg tablet (Zetia) 10 mg PO DAILY 04/10/21 10/23/23 History metoprolol succinate 25 mg 25 mg PO DAILY 04/27/21 10/23/23 History tablet,extended release 24 hr cholecalciferol (vitamin D3) 25 1,000 unit PO DAILY 04/11/22 10/23/23 History mcg (1,000 unit) capsule sildenafil 100 mg tablet 100 mg PO DAILY PRN sexual 04/11/22 10/23/23 Rx activity #90 tabs alprazolam 0.25 mg tablet (Xanax) 0.25 mg PO .COMPLEX PRN anxiety 06/10/22 10/23/23 Rx #20 tabs eszopiclone 2 mg tablet (Lunesta) 2 mg PO QHS #1 tablet 07/02/23 10/23/23 Rx tizanidine 4 mg capsule 4 mg PO TID PRN muscle spasticity 08/25/23 10/23/23 Rx #30 caps OneTouch Ultra Test (blood sugar #50 ea 10/23/23 10/23/23 Rx diagnostic) fluticasone propionate 50 1 spray intranasal BID #15.8 mL 10/29/23 Rx mcg/actuation nasal spray,suspension (Allergy Relief (fluticasone)) ipratropium bromide 21 mcg (0.03 2 spray intranasal TID #30 mL 11/10/23 Rx %) nasal spray metformin 500 mg tablet,extended 1,500 mg PO QPM #360 tabs 11/17/23 Rx release 24 hr semaglutide 0.25 mg or 0.5 mg (2 0.5 mg (0.736 mL) subcut WEEKLY #3 11/27/23 11/27/23 Rx mg/3 mL) subcutaneous pen injector mL (Ozempic) Sleep Procedure A full night polysomnogram using the [employer] SleepAmootoon multi-channel system recorded the standard physiologic parameters including EEG, EOG, submentalis EMG, anterior tibialis EMG, EKG, body position, nasal and oral airflow using nasal pressure sensor and thermistor.? Respiratory parameters of chest and abdominal movements were recorded with Respiratory Inductance Plethysmography belts. Oxygen saturation was recorded by pulse oximetry. Video monitoring was also performed. Sleep stages, periodic limb movements, and EEG arousals were scored in 30 second epochs according to the criteria of the AASM Scoring Manual. The Apnea-Hypopnea Index was calculated using [facility] guidelines for definition of hypopnea with 4% O2 desaturations while scoring respiratory events. Sleep Architecture The total recording time was 483.0 minutes.? The total sleep time was 443.5 minutes. Sleep latency was 0.1 minutes. REM latency was 67.0 minutes. Sleep efficiency was 91.8%. The patient had 23 awakenings for an awakening index of 3.1. Wake after Sleep Onset time was 39.0 minutes. The patient spent 44.5 minutes, 10.0% of total sleep time in Stage N1. The patient spent 276.0 minutes, 62.2% in Stage N2. The patient spent 27.0 minutes, 6.1% in Stage N3. The patient spent 96.0 minutes, 21.6% in Stage REM. Respiratory Analysis The patient had 3 central apneas for an overall Apnea Hypopnea Index of 0.4 events per hour. The REM Apnea Hypopnea Index was 0. The NREM Apnea Hypopnea Index was 0.5. The patient had a Central Apnea Hypopnea Index of 0.4. There were 1 Respiratory Effort Related Arousal resulting in a RERA index of 0.1 events per hour. The Respiratory Disturbance Index is 0.5 events per hour. There was no evidence of Wilfredo-Colin Respirations. The patient was started on CPAP 5 cm H2O and titrated to CPAP 7 cm H2O. The patient was able to fall asleep starting on CPAP 5 cm H2O. The patient was able to achieve REM sleep starting on CPAP 5 cm H2O. The patient was able to achieve a residual AHI less than 5 with both NREM and REM sleep in the supine position on all pressures. On CPAP 5 cm H2O, the patient spent 111.5 minutes in NREM and 5.5 minutes in REM with 2 central apneas, resulting in an AHI of 1.0. On CPAP 6 cm H2O, the patient spent 104.5 minutes in NREM and 33.5 minutes in REM with no respiratory events resulting in an AHI of 0. On CPAP 7 cm H2O, the patient spent 131.5 minutes in NREM and 57 minutes in REM with 1 central apnea, resulting in an AHI of 0.3. The patient had a sleep efficiency of 96.3% on 5 cm H2O, 91.4% on 6 cm H2O and 89.5% on 7 cm H2O. Arousals There were 112 total arousals for an arousal index of 15.2. There were 74 spontaneous arousals for an index of 10.0. ?There were 1 arousals due to respiratory events for an index of 0.1. There were 18 arousals due to periodic limb movements for an index of 2.4.? There were 19 arousals due to isolated limb movements for an index of 2.6. Periodic Limb Movements The patient had 72 isolated limb movements with an index of 9.7. The patient had 64 periodic limb movements with index of 8.7. Patient had a total of 136 limb movements with a total limb movement index of 18.4. Oximetry Data The patient had an average oxygen saturation of 95.5% in sleep with a minimum oxygen saturation of 88.0% and a maximum oxygen saturation of 98.0%. The patient had 6 oxygen desaturations that were 4% or greater resulting in an Oxygen Desaturation Index of 0.8.? The patient spent 0.2 minutes of total sleep time with an oxygen saturation below 88%. Snoring Profile Snoring was not present during this study. Cardiac Profile The EKG showed normal sinus rhythm with rare PVCs. The patient had an average pulse rate of 82.0 bpm with a minimum pulse rate of 70.0 bpm and a maximum pulse rate of 99.0 bpm. ? EEG Profile No signs of seizure activity seen. Assessment and Plan Assessment and Plan (1) Obstructive sleep apnea: Code(s): G47.33 - Obstructive sleep apnea (adult) (pediatric) Status: Acute Assessment and Plan: The patient was started on CPAP 5 cm H2O and titrated to CPAP 7 cm H2O. His sleep apnea resolved on multiple pressures in the supine position. I recommend that the patient be prescribed Resmed CPAP at 6 cm H2O, size small Resmed AirFit F30i mask, CPAP filters/tubing and heated humidity. This should be used with all episodes of sleep.? Compliance should be reviewed within 31-90 days of starting therapy for usage greater than 4 hours per night greater than 70% of the nights. The patient should be asked about symptoms such as?excessive daytime sleepiness, quality of sleep, decreased nocturia, increased?mental functioning such as memory, mood, and concentration. Data The data obtained during this sleep study is adequate for interpretation. Certification This sleep study has been reviewed by a board certified sleep medicine physician.
[2024-02-11 13:05] VITALS: BMI 27.5
== END 2024-01-17 06:53 | disposition home or self-care (01) ==
PROVIDERS: PCP Family Medicine; Visit Provider Family Medicine
DX: G47.33 Obstructive sleep apnea (adult) (pediatric) (principal)
CPT/HCPCS: 95811

== ENCOUNTER 2024-10-21 17:26 | Outpatient (CLI) | payer BC, SELFPAY ==
--- NOTE | ~2024-10-21 | XR_ITS ---
XR hand BI arthritis min 3V 10/21/2024 17:46 Indication: Osteoarthritis Procedure: 4 views each hand Comparison: No prior studies for comparison. Findings: There is mild-moderate polyarticular osteoarthritis of the interphalangeal joints as well a s the first metacarpophalangeal joints bilaterally. No acute fracture or traumatic malalignment. No e rosive changes. Impression: 1: Mild-moderate bilateral polyarticular osteoarthritis. Reviewed, dictated and finalized at location A. Impression: 1: Mild-moderate bilateral polyarticular osteoarthritis.
--- OUTSIDE RECORDS SUMMARY | 2024-10-21 17:30 | XMS_ITS | Clinical Summary ---
Author Organization [facility] [place] [address] Address [address] [place] [address] Care Team Providers Care Health Counselor Name Role Phone Vince Jansen MD Primary Care Provider [phone] Allergies No known active allergies Medications apixaban (Eliquis) 5 mg tablet 1 tablet (5 mg total) 2 Active atorvastatin (LIPITOR) 80 mg tablet 1 tablet (80 mg total) 2 Active cetirizine (ZyrTEC) 10 mg tablet 1 tablet (10 mg total) 9 Active cholecalciferol (VITAMIN D-3) 5,000 unit tablet Take 1 tablet (5,000 Units total) by mouth daily Active cyanocobalamin (Vitamin B-12) 2,000 mcg tablet Take 1 tablet (2,000 mcg total) by mouth daily Active ezetimibe (ZETIA) 10 mg tablet 1 tablet (10 mg total) 2 Active fluticasone propionate (Flonase Allergy Relief) 50 mcg/actuation nasal spray 2 spray(s), Nasal, daily, 1 each, [place], 0 2 Active metFORMIN (GLUCOPHAGE) 500 mg tablet 3 tablets (1,500 mg total) 8 Active metoprolol XL (TOPROL-XL) 25 mg extended release tablet Take 1 tablet (25 mg total) by mouth daily Active predniSONE (DELTASONE) 20 mg tablet 4 Active albuterol HFA (PROVENTIL HFA,VENTOLIN HFA,PROAIR HFA) 90 mcg/actuation inhalerIndicatio ns:Lower respiratory infection (e.g., bronchitis, pneumonia, pneumonitis, pulmonitis) Inhale 2 puffs every 6 (six) hours as needed for wheezing or shortness of breath 1 each 4 Active azithromycin (ZITHROMAX) 250 mg tabletIndication s:Lower respiratory infection (e.g., bronchitis, pneumonia, pneumonitis, pulmonitis) Take 2 tablets the first day, then 1 tablet daily for 4 days. 6 tablet 4 Active Additional Information Patient not taking.Reported on 09/09/2024 cyclobenzaprine (FLEXERIL) 10 mg tabletIndication s:Acute left-sided low back pain without sciatica Take 1 tablet (10 mg total) by mouth 2 (two) times a day as needed for muscle spasms 10 tablet 5 Active Active Problems No known active problems Encounters Date Type Department Care Team Description 09/10/2024 8:00 AM CDT Ancillary Procedure [facility] Imaging at [address] [address] Acute left-sided low back pain without sciatica; Soft tissue swelling of back 09/10/2024 Results Follow-Up [facility] Convenient Care at [address] [address] Naima Booker NP XR Spine Lumbar 4 or More Views 09/09/2024 6:30 PM CDT Office Visit [facility] Convenient Care at [address] [address] Ynes Torres NP Acute left-sided low back pain without sciatica (Primary Dx); Soft tissue swelling of back from Last 3 Months Social History Tobacco Use Types Packs/Day Years Used Date Smoking Tobacco: Never Assessed Sex and Gender Information Value Date Recorded Sex Assigned at Not on file 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 Gender Identity Not on file Sexual Orientation Not on file Obstetrics History Last Filed Vital Signs Vital Sign Reading Time Taken Comments Blood Pressure 118/73 09/09/2024 6:27 PM CDT Pulse 89 09/09/2024 6:27 PM CDT Temperature 36.6 C (97.8 F) 09/09/2024 6:27 PM CDT Respiratory Rate 18 09/09/2024 6:27 PM CDT Oxygen Saturation 98% 09/09/2024 6: 27 PM CDT Inhaled Oxygen Concentration - - Weight 87.5 kg (192 lb 14.4 oz) 09/09/2024 6:27 PM CDT Height 177.8 cm (5' 10) 09/09/2024 6:27 PM CDT Body Mass Index 27.68 09/09/2024 6:27 PM CDT Plan of Treatment Health Maintenance Due Date Last Done Comments Colon Cancer Screening-Colonoscopy 1968 Depression Screening 1968 Hepatitis C Screening 1968 Prostate Cancer Screening-PSA 1968 DTaP/Tdap/Td Vaccine (1 - Tdap) 08/31/1979 Hepatitis B Screening 1986 Regular Well Visit/Exam 18-64 1986 Zoster Vaccine (1 of 2) 2018 Covid-19 Vaccine (2023-2 5 season) 2023 03/04/2021, 06/29/2020, 06/01/2020 Influenza Vaccine (#1) 2024 Pneumococcal vaccine <65 Aged Out No longer eligible based on patient's age to complete this topic Procedures Procedure Name Priority Date/Time Associated Diagnosis Comments XR SPINE LUMBAR ROUTINE Schedule FORTINO, Read FORTINO (Appt Today, Awaiting Results) 09/10/2024 8:13 AM CDT Acute left-sided low back pain without sciatica Soft tissue swelling of back from Last 3 Months Results * XR Spine Lumbar 4 or More Views (09/10/2024 8:13 AM CDT) Anatomical Region Laterality Modality L-spine N/A Digital Radiogra phy 09/10/2024 8:46 AM CDT Narrative 09/10/2024 8:47 AM CDT EXAM DESCRIPTION: XR SPINE LUMBAR 4 OR MORE VIEWS REASON FOR STUDY: pain, fatty like tissue mass felt to left lower back Pt complains of lump that showed up lower left back x 2 days ago. No known injury or prior surgery TECHNIQUE: Four views COMPARISON: None available FINDINGS: 5 non rib-bearing lumbar type vertebra. Minimal lumbar scoliosis convexity to the right in the lower lumbar region. Oblique views demonstrate no spondylolysis. No spondylolisthesis or compression deformity. Diffuse moderately severe endplate and facet degenerative changes most pronounced L4 through S1. SI joints demonstrate mild degenerative change. Paravertebral soft tissues unremarkable. IMPRESSION: Moderately severe degenerative changes and mild lumbar scoliosis. THIS IS AN ELECTRONICALLY VERIFIED FINAL REPORT 09/10/2024 8:47 AM - Electronically signed by Kareem SCHREIBER T: Report ID: [id number] Reading Location: [id number] Procedure Note Kareem Sexton MD - 09/10/2024 EXAM DESCRIPTION: XR SPINE LUMBAR 4 OR MORE VIEWS REASON FOR STUDY: pain, fatty like tissue mass felt to left lower back Pt complains of lump that showed up lower left back x 2 days ago. No known injury or prior surgery TECHNIQUE: Four views COMPARISON: None available FINDINGS: 5 non rib-bearing lumbar type vertebra. Minimal lumbar scoliosis convexity to the right in the lower lumbarregion. Oblique views demonstrate no spondylolysis. No spondylolisthesis or compression deformity. Diffuse moderately severe endplate and facet degenerative changes most pronounced L4 through S1. SI joints demonstrate mild degenerative change. Paravertebral soft tissues unremarkable. IMPRESSION: Moderately severe degenerative changes and mild lumbarscoliosis. THIS IS AN ELECTRONICALLY VERIFIED FINAL REPORT 09/10/2024 8:47 AM - Electronically signed by Kareem SCHREIBER T: Report ID: [id number] Reading Location: [place] [address] Ynes Torres NP IMG XR PROCEDURES Final Result from Last [place] [address] [facility] CHOICE PLUS [facility] [place] [address] [facility] Care Teams Health Counselor Relationship Specialty Start Date End Date Vince Jansen MD [address] [address] PCP - General Family Medicine 01/12/18
--- OUTSIDE RECORDS SUMMARY | 2024-10-21 17:30 | XMS_ITS | Clinical Summary ---
Author Organization [facility] Address [address] [place] [address] Care Team Providers Care Pizzamaker Name Role Phone Vince Jansen MD Primary Care Provider [phone] Source Comments [facility],non-owned Affiliates and Associated Physician Practices is amultiple site organization consisting of ambulatory clinics and hospital sitesin [place], [place] and [place]. This disclosure is being madepursuant to the Care Everywhere program and may not contain all information available regarding this patient. Last updated 17.[facility] [employer] Allergies No known active allergies Medications * Be aware that medications may not be up to date on this document. Alwaysverify current medications with the patient. 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 Gender Identity Not on file Sexual Orientation Not on file Last Filed Vital Signs Vital Sign Reading Time Taken Comments Blood Pressure 130/76 03/14/2017 3:10 PM DIGITAL STRATEGY DIRECTOR Pulse 98 03/14/2017 3:10 PM DIGITAL STRATEGY DIRECTOR Temperature 36.8 C (98.3 F) 03/14/2017 3:10 PM DIGITAL STRATEGY DIRECTOR Respiratory Rate 18 03/14/2017 3:10 PM DIGITAL STRATEGY DIRECTOR Oxygen Saturation 97% 03/14/2017 3:10 PM DIGITAL STRATEGY DIRECTOR Inhaled Oxygen Concentration - - Weight 95.3 kg (210 lb) 03/14/2017 3:10 PM DIGITAL STRATEGY DIRECTOR Height 177.8 cm (5' 10) 03/14/2017 3:10 PM DIGITAL STRATEGY DIRECTOR Body Mass Index 30.13 03/14/2017 3:10 PM DIGITAL STRATEGY DIRECTOR Plan of Treatment Health Maintenance Due Date Last Done Comments COLOGUARD (AGES 45-75) - COL ON CA SCREENING 1968 COLON MONITORING 1968 COLONOSCOPY - COLON CA SCREENING 1968 CT COLONOGRAPHY - COLON CA SCREENING 1968 Colorectal Cancer Screening 1968 FIT - COLON CA SCREENING 1968 FLEX SIG - COLON CA SCREENING 1968 HIV SCREENING 08/31/1983 HEPATITIS C SCREENING 08/26/1986 DTAP/TDAP/TD VACCINES (1 - Tdap) 08/31/1987 HEPATITIS B VACCINE (1 of 3 - 19+ 3-dose series) 08/31/1987 SCREENING FOR DIABETES 03/14/2017 PNEUMOCOCCAL VACCINE 50+ (1 of 1 - PCV) 2018 ZOSTER VACCINE (1 of 2) 2018 COVID-19 VACCINE (1 - 2023-2 5 season) 2023 DEPRESSION SCREENING 03/24/2024 INFLUENZA VACCINE (#1) 2024 HIB VACCINE Aged Out No longer eligi ble based on patient's age to complete this topic HPV VACCINE Aged Out No longer eligi ble based on patient's age to complete this topic MENINGOCOCCAL (Group B) VACC INE SHARED DECISION-MAKING Aged Out No longer eligibl e based on patient's age to complete this topic MENINGOCOCCAL GROUPS A/C/Y/W VACCINE Aged Out No longer eligible b ased on patient's age to complete this [place] [address] [facility] [employer] Care Teams Pizzamaker Relationship Specialty Start Date End Date Vince Jansen MD PCP - General Family Medicine 03/14/17
--- OUTSIDE RECORDS SUMMARY | 2024-10-21 17:30 | XMS_ITS | Encounter Summary ---
Author Organization [facility] Address [address] [place] [address] Care Team Providers Care Janitorial Assistant Name Role Phone Bello Nunes MD Unavailable [phone] Vince Jansen MD Primary Care Provider [phone] Encounter Details Date Type Department Care Team (Late st Contact Info) Description 09/13/2021 Prep for Procedure [facility] Pre-Admission Testing [place], [place] [address] Edd Harrell MD [address] [place], [place] [address] Social History Tobacco Use Types Packs/Day Years Used Date Smoking Tobacco: Never Smokeless Tobacco: Never Alcohol Use Standard Drinks/Week Comments Not Currently 0 (1 standard drink = 0.6 oz pur e alcohol) Sex and Gender Information Value Date Recorded Sex Assigned at Not on file Legal Sex Male 2:09 PM CDT Gender Identity Not on file Sexual Orientation Not on file COVID-19 Exposure Response Date Recorded In the last 10 days, have yo u been in contact with someone who was confirmed or suspected to have Coronavirus/COVID-19? No / Unsure 09/13/2021 9:46 AM CDT documented as of this encounter Plan of Treatment Not on file documented as of this encounter Results * CULTURE URINE (09/17/2021 6:37 AM CDT) SPEC DESCRIPTION URINE CLEAN CATCH 09/17/2021 6:38 AM CDT [facility] SPECIAL REQUESTS NO SPECIAL REQUEST 09/17/2021 6:38 AM CDT [facility] CULTURE RESULT NO GROWTH 2 DAYS 09/19/2021 8:36 AM CDT [facility] URINE SPECIMEN OBTAINED BY CLEAN CATCH PROCEDURE / Unknown 09/17/2021 6:37 AM CDT 09/17/2021 6:42 AM CDT Edd Harrell MD MICROBIOLOGY - GENER AL ORDERABLES Final Result [facility] [address] [place] [address], documented in this encounter Visit Diagnoses Diagnosis Calculus, ureter- Primary Calculus of ureter documented in this encounter Care Teams Janitorial Assistant Relationship Specialty Start Date End Date Vince Jansen MD [address] [place] [address] [address] [place] [address] PCP - General FAMILY PRACTICE 09/17/21 Bello Nunes MD [address] [place] [address] CARDIOLOGY 09/13/21 documented as of this encounter
--- OUTSIDE RECORDS SUMMARY | 2024-10-21 17:30 | XMS_ITS | Patient Health Record ---
Author Organization [facility] Address [address] [facility] [address] [place] [address] Care Team Providers Care Track Coach Name Role Phone Vince Jansen MD Primary Care Provider Birgit wilhelm Reason For Referral No Information Medications Medication SIG (Take, Route, Frequency, Duration) Notes Start Date End Date Status Esomeprazole Magnesium 40 MG 1 capsule Orally Once a day Active metFORMIN HCl Active Atorvastatin Calcium Active Metoprolol Tartrate Active Tamsulosin HCl Activ e OTC/Vitamins Flonase, Iron, ASA, Potassium, Zyrtec, MVI, B12, D3, Vit C Active Immunizations Vaccine Route Administration Date Status Comme nts Influenza Vaccination Unknown 04/14/2018 Refused Social History Tobacco Use: Social History Observation Description Date Details (start date - stop date) Never Smoker NA - NA Tobacco Use/Smoking Question Answer Notes Are you a nonsmoker Problems Problem Type SNOMED Code ICD Code Onset Dates Problem Status W/U Status Risk Notes Problem [id number] GERD with esophagitis (K21.0) Active confirmed GERD and its natural history, potential complications, treatment options were discussed. Benefits, alternatives, indications of using a proton pump inhibitor retirement were discussed. Educational information was provided. 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 His upper endoscopy, colonoscopy, small bowel series were normal. However, the differential diagnosis would include subclinical celiac disease, as well as other small intestinal pathology that might have been missed by small bowel series. Records from [facility] in [place] have been requested to review his endoscopic studies. Plan Of Treatment Pending Test Test Name Order Date Capsule Endoscopy 06/29/2018 Initiate Capsule Endoscopy 04/14/2018 Insurance Providers Payer Name Payer Address Payer Phone Subscriber Number Group Number Insured Name Patient Relationship to Insured Coverage Start Date Coverage End Date Blue Access PPO E2 [address] [place] [address] [id number] Bonifacio Morrow Self - patient is the insured [facility] Choice/c hoice Plus E2 [address] [address] [place] [address] [id number] Maria Del Carmen Morrow Spouse - patient is the spouse of the insured Medical (General) History Medical History History ICD Code Diabetes High cholesterol Iron deficiency Sleep apnea Atrial Fibrillation Hospitalization History Reason Date(Month/Year) Atrial Fibrillation
--- OUTSIDE RECORDS SUMMARY | 2024-10-21 17:30 | XMS_ITS | Clinical Summary ---
Author Organization [facility] [place] [address] Care Team Providers Care Paperhanger Contractor Name Role Phone Bello Nunes MD Unavailable [phone] Vince Jansen MD Primary Care Provider Allergies No known active allergies Medications metoprolol succinate ER 25 MG 24 hr tablet Take 25 mg by mouth daily. Active HYDROcodone-dong taminophen 5-325 MG tablet 2 Active Multiple Vitamin (MULTIVITAMIN ADULT OR) Take 1 tablet by mouth daily. Active cholecalciferol (VITAMIN D3) 125 MCG (5000 UT) Tab Take 5,000 Units by mouth daily. Active Cyanocobalamin (B-12) 2000 MCG Tab Take 1 tablet by mouth daily. Active B complex-C Cap capsule Take 1 capsule by mouth daily. Active fluticasone propionate 50 MCG/ACT nasal spray 1 spray by Nasal route daily. Active atorvastatin 80 MG tablet Take 80 mg by mouth daily. Active metFORMIN ER 500 MG 24 hr tablet Take 1,500 mg by mouth daily with breakfast. Active apixaban 5 MG tablet Take 5 mg by mouth 2 (two) times daily. Active NON FORMULARY 1 spray by Nasal route daily. Ipratropium nasal spray Active tamsulosin 0.4 MG Cap Take 0.4 mg by mouth daily. 2 Active Active Problems Problem Noted Date Diagnosed Date Left ureteral calculus 09/21/2021 Family History Medical History Relation Comments Hepatitis Brother 1 COPD Father Heart Disease Father defibrillator Father Cancer Mother Relation Status Comments Brother 1 Brother 2 Alive Brother 3 Alive Father Mother Sister 1 Alive Sister 2 Alive Social History Tobacco Use Types Packs/Day Years [...] Sign Reading Time Taken Comments Blood Pressure 145/80 09/21/2021 3:40 PM CDT Pulse 68 09/21/2021 3:40 PM CDT Temperature 36.6 C (97.9 F) 09/21/2021 3:40 PM CDT Respiratory Rate 16 09/21/2021 3:40 PM CDT Oxygen Saturation 98% 09/21/2021 3:40 PM CDT Inhaled Oxygen Concentration - - Weight 89.6 kg (197 lb 8.5 oz) 09/21/2021 11:30 AM CDT Height 177.8 cm (5' 10) 09/21/2021 11:30 AM CDT Body Mass Index 28.34 09/21/2021 11:30 AM CDT Plan of Treatment Health Maintenance Due Date Last Done Comments Colorectal Cancer Screening Colonoscopy (10 Years) 1968 Annual Physical 08/31/1971 Hepatitis C 1986 DTaP, Tdap and Td Vaccines ( 1 - Tdap) 08/31/1987 Hepatitis B Vaccines (1 of 3 - 19+ 3-dose series) 08/31/1987 Pneumococcal Vaccine: 50+ Years (1 of 1 - PCV) 2018 Zoster Vaccines (1 of 2) 2018 COVID-19 Vaccine (4 - 2023-2 5 season) 2023 03/04/2021, 06/29/2020, 06/01/2020 Meningococcal B Vaccine Aged Out No l onger eligible based on patient's age to complete this topic Meningococcal Vaccine Aged Out No denny olegario eligible based on patient's age to complete this topic RSV Immunizations Under 20 Months Aged Out No longer eligible b ased on patient's age to complete this topic Medical Devices Implanted Type Area Veterinary Medicine Scientist Device Identifier Shelf Expiration Date Model / Serial / Lot Stent Uret 6fr 26cm Pigtl Crv Taper Tip Bldr Mrk - [id number] Implanted:Qty : 1 on 09/21/2021 by Edd Harrell MD at [facility] Stent Left: Ureter [employer] JAEL [id number] 04/30/2024 [id number] Insurance [facility] Care Teams Paperhanger Contractor Relationship Specialty Start Date End Date Vince Jansen MD [address] [place] [address] [address] [place] [address] PCP - General FAMILY PRACTICE 09/17/21 Bello Nunes MD [address] [place] [address] CARDIOLOGY 09/13/21
--- OUTSIDE RECORDS SUMMARY | 2024-10-21 17:30 | XMS_ITS | Referral Summary ---
Author Organization [facility] [address] Address [address] [place] [address] Care Team Providers Care Computer Engineering Technologist Name Role Phone Vince Jansen MD Primary Care Provider [phone] Encounters Date Type Department Care Team Description 09/10/2024 Results Follow-Up [facility] Convenient Care at [address] [address] Naima Booker NP XR Spine Lumbar 4 or More Views 09/10/2024 8:00 AM CDT Ancillary Procedure [facility] Imaging at [address] [address] Acute left-sided low back pain without sciatica; Soft tissue swelling of back 09/09/2024 6:30 PM CDT Office Visit [facility] Convenient Care at [address] [address] Ynes Torres NP Acute left-sided low back pain without sciatica (Primary Dx); Soft tissue swelling of back from Last 3 Months Allergies No known active allergies Medications apixaban [...] spray 2 spray(s), Nasal, daily, 1 each, [address], 0 2 Active metFORMIN (GLUCOPHAGE) 500 mg [...] Active Active Problems No known active problems Social History Tobacco Use Types Packs/Day Years Used Date Smoking Tobacco: Never Assessed Sex and Gender Information Value Date Recorded Sex Assigned at Not on file 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 Gender Identity Not on file Sexual Orientation Not on file Last Filed Vital Signs Vital Sign Reading Time Taken Comments Blood Pressure 118/73 09/09/2024 6:27 PM CDT Pulse 89 09/09/2024 6:27 PM CDT Temperature 36.6 C (97.8 F) 09/09/2024 6:27 PM CDT Respiratory Rate 18 09/09/2024 6:27 PM CDT Oxygen Saturation 98% 09/09/2024 6:27 PM CDT Inhaled Oxygen Concentration - - Weight 87.5 kg (192 lb 14.4 oz) 09/09/2024 6:27 PM CDT Height 177.8 cm (5' 10) 09/09/2024 6:27 PM CDT Body Mass Index 27.68 09/09/2024 6:27 PM CDT Plan of Treatment Not on file Procedures Procedure Name Priority Date/Time Associated Diagnosis [...] signed by Kareem SCHREIBER T: Report ID: [id number] Reading Location: [id number] Procedure Note Kareem Sexton MD - 09/10/2024 [...] signed by Kareem SCHREIBER T: Report ID: [id number] Reading Location: [place] [address] Ynes Torres NP IMG XR PROCEDURES Final Result from Last 3 [place] [address] [facility] CHOICE PLUS [facility] [place] [address] [facility] Care Teams Computer Engineering Technologist Relationship Specialty Start Date End Date Vince Jansen MD [address] [address] PCP - General Family Medicine 01/12/18
--- OUTSIDE RECORDS SUMMARY | 2024-10-21 17:30 | XMS_ITS | Clinical Summary ---
Author Organization [facility] Address [address] [place] 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 Nephrolithiasis 11/29/2021 Encounters Date Type Department Care Team Description 09/14/2024 External Device Data [facility] ABSTRACTION Provider, Abstract from Last 3 Months Social History Tobacco Use Types Packs/Day Years Used Date Smoking Tobacco: Never Smokeless Tobacco: Never Tobacco Cessation:Counseling Given: Not Answered Sex and Gender Information Value Date Recorded Sex Assigned at Not on file Legal Sex Male 9:22 AM CDT Gender Identity Not on file Sexual Orientation Not on file Last Filed Vital Signs Vital Sign Reading Time Taken Comments Blood Pressure 130/74 10/01/2022 7:51 AM CDT Pulse - - Temperature - - Respiratory Rate - - Oxygen Saturation - - Inhaled Oxygen Concentration - - Weight 90.7 kg (200 lb) 04/12/2024 12:50 PM BAGGAGE SCREENER Height 177.8 cm (5' 10) 04/12/2024 12:50 PM BAGGAGE SCREENER Body Mass Index 28.7 04/12/2024 12:50 PM BAGGAGE SCREENER Plan of Treatment Upcoming Encounters Date Type Department Care Team (Late st Contact Info) Description 04/11/2025 1:00 PM BAGGAGE SCREENER Office Visit [facility] at [facility] [address] [place] [address] Toney Shaver MD [address] [place] [address] Health Maintenance Due Date Last Done Comments Pre-Diabetes and Diabetes Screening 1968 DTAP/TDAP/TD VACCINES (1 - Tdap) 08/31/1987 HEPATITIS B VACCINES (1 of 3 - 19+ 3-dose series) 11/1987 COLORECTAL SCREENING 2013 Colorectal Cancer Screening 2013 FIT-DNA Q 3 years 2013 FIT/FOBT Q 1 year 2013 Flex Sig/CT Colonography Q 5 years 2013 ZOSTER VACCINE (1 of 2) 2018 INFLUENZA VACCINE (#1) 2024 Insurance [facility] BLUE ACCESS/TRUE BLUE PPO Care Teams Sales Operations Specialist Relationship Specialty Start Date End Date Vince Jansen MD [address] [place] [address] PCP - General Family Practice 03/28/22
--- OUTSIDE RECORDS SUMMARY | 2024-10-21 17:30 | XMS_ITS | Continuity of Care Document ---
Author Organization [facility] Address [address] [place] [address] [address] [place] [address] Phone Care Team Providers Care Link And Link Knitting Machine Operator Name Role Phone Bagn OD, Rashaun Unavailable Unavailable Procedures Procedure Date Eye Exam Established Pt Advance Directives Directive Yes / No Effective Date File Name No Information Encounters Encounter Description Practice Location Reason(s) For Visit Diagnoses Date Provider Providers Copied on Encounter [facility], [id number] [place] [address] [address], [place], [place], [id number], [place] tel:[phone] [facility] [place] No Information 4-200 [address] Bang OD Rashaun. [address] [facility] [address] , [address], [place], [address], [place]. tel:[phone] Family History Family Member Type Diagnosis Age At Onset No Information Payers Payer name Insurance type Covered constitution party ID Authoriza tion(s) No Information Social History Type Description Quantity Date Captured Comments Sex Male Smoking Status No Information Chief Complaint And Reason For Visit No Information Reason For Referral Reason For Referral No Information History Of Present Illness Encounter Date Complaint History Of Prese nt Illness No Information Functional Status Date Functional Assessmen t No Information Instructions Date Instruction Additional Infor mation No Information Assessments Type Assessment Date No Information Patient Care Teams Name Effective Dates (start - stop) Status Members No Information
--- OUTSIDE RECORDS SUMMARY | 2024-10-21 17:30 | XMS_ITS | Encounter Summary ---
Author Organization [facility] Address [address] [place] [address] Care Team Providers Care Sales Marketing Manager Name Role Phone Vince Jansen MD Primary Care Provider [phone] Encounter Details Date Type Department Care Team (Late st Contact Info) Description 09/10/2024 Results Follow-Up [facility] at [address] [address] Naima Booker, [employer]EF[employer] ADMINISTRATOR [address] [facility] [address] [place], [place] [id number] XR Spine Lumbar 4 or More Views Social History Tobacco Use Types Packs/Day Years Used Date Smoking Tobacco: Never Assessed Sex and Gender Information Value Date Recorded Sex Assigned at Not on file Legal 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
== END 2024-10-21 17:27 | disposition home or self-care (01) ==
PROVIDERS: PCP Family Medicine; Visit Provider Family Medicine
DX: M19.041 Primary osteoarthritis, right hand (principal); M19.042 Primary osteoarthritis, left hand
CPT/HCPCS: 73130